=== PATIENT | female | born 1970 | race Caucasian/White ===

== ENCOUNTER 2022-09-27 09:22 | Emergency (ER) | payer OTHER ==
[~2022-09-27] VITALS: Ht 154.9 cm; Wt 70.8 kg
[2022-09-27 09:35] VITALS: BP 140/92; PULSE 99; RESP 17; TEMP 97.4; O2SAT 99
[2022-09-27] MEDS ORDERED: KETOROLAC 30 MG/ML VIAL IM ONE (10:15)
[2022-09-27] MEDS ORDERED: NAPR-1704 PO (10:30)
[2022-09-27 10:56] VITALS: BP 135/88; PULSE 80; RESP 17; TEMP 97.4; O2SAT 99
== END 2022-09-27 10:56 | disposition home or self-care (01) ==
LOC: MED 09:22
DX: G56.01 Carpal tunnel syndrome, right upper limb (principal); Z79.899 Other long term (current) drug therapy; Z88.5 Allergy status to narcotic agent
CPT/HCPCS: 29125; 73110; 81025; 96372; 99283; J1885